=== PATIENT | male | born 1995 | race Two or more races ===

== ENCOUNTER 2023-08-17 13:58 | Inpatient (IN) | payer OTHER, SELFPAY ==
[2023-08-17] VITALS (12 sets, daily range): BP systolic 110–134; BP diastolic 67–87; BMI 36.2; BMI 34.9
--- NOTE | 2023-08-17 07:19 | ED.GENMED ---
History of Present Illness
<ARLEN Knox - Last Filed: 08/17/23 13:10>
General
Chief Complaint: Abdominal Pain
Source: patient
Exam Limitations: none
Time Seen by Provider: 08/17/23 07:06
Nursing documentation reviewed up to this point in time: agreed with
History of Present Illness
History of Present Illness:
Patient is a 28-year-old male with past medical history of gastric sleeve surgery done 1 year ago with cholecystectomy at [facility] presents to the ER with upper abdominal pain. He reports he started with his upper abdominal pain and
bloating for the past 4 days. He feels he may have stabbing him. He denies radiation. With food he becomes more bloated and nauseous. He also reported stool has been dark over the past several days. He has had decreased appetite. No prior
history of similar symptoms in the past.
Past History
<ARLEN Knox - Last Filed: 08/17/23 13:10>
Past History
ED Past Medical History: Other (Pneumonia in 2016, Hemorhoidectomy in 2017, fatty liver disease)
ED Past Surgical History: Other (Hemorrhoidectomy)
Social History
Tobacco: Non-smoker
Alcohol: None
Drug: None
Employment: Employed
Family History
Family History: CAD (Father- 2 stents) and Cancer (mother- with Breast Ca and mets to brain in 2016)
Review of Systems
<ARLEN Knox - Last Filed: 08/17/23 13:10>
Review of Systems
Allergies reviewed?: Yes
All Other Systems: ROS reviewed and negative except as documented in HPI and ROS
Constitutional: Reports no symptoms; Denies fever, fatigue or chills
Respiratory: Reports no symptoms
Cardiac: Reports no symptoms
ABD/GI: Reports abdominal pain, nausea and other (dark stools ); Denies vomiting
: Reports no symptoms
Skin: Reports no symptoms
Neurological: Reports no symptoms
Hematologic/Lymphatic: Reports no symptoms
Psychiatric: Reports no symptoms
Phy Exam
<ARLEN Knox - Last Filed: 08/17/23 13:10>
General Physical Exam
General Presentation: well appearing
General age: appears stated age
General Skin: warm and dry
General Habitus: normal
General Mental: alert
General Hydration: appears well hydrated
Gastrointestinal Exam
Gastrointestinal Exam: soft and other (epigastric pain /tenderness on exam rectal: no stool in vault )
Neurological Exam
Neurological Exam: alert and oriented x3
Musculoskeletal Exam
Musculoskeletal Exam: full ROM
Skin Exam
Skin Exam: normal color and warm/dry
Psychiatric Exam
Psychiatric Exam: normal mood/affect
Course
<ARLEN Knox - Last Filed: 08/17/23 13:10>
Orders/Labs/Results
Orders:
Orders
08/17/23 06:51
EKG [Electrocardiogram (*1)] Urgent
Reason for Study: Other
Other Reason for Exam: upper epigastric pain
EKG- Treatment ONCE
08/17/23 07:22
Famotidine [Pepcid] 20 mg IV NOW STA
Ondansetron Injectable [Zofran] 4 mg IV NOW STA
08/17/23 07:26
CT Abd/pel (oral only)-DH Only Urgent
Reason For Exam: abd pain hx of gastric sleeve surg
Iohexol [Omnipaque] See Protocol PO NOW STA
08/17/23 07:37
Ondansetron Orally Disint [Zofran Odt (Orally Disintegrating)] 4 mg .ROUTE .ST-MED ONE
08/17/23 07:42
Ondansetron Orally Disint [Zofran Odt (Orally Disintegrating)] 4 mg PO NOW STA
08/17/23 08:45
Basic Metabolic Panel Urgent
Lipase Urgent
08/17/23 09:25
Ketorolac [Toradol] 30 mg IV NOW STA
08/17/23 09:26
Ketorolac [Toradol] 30 mg IM NOW STA
Ondansetron Orally Disint [Zofran Odt (Orally Disintegrating)] 4 mg PO NOW STA
08/17/23 09:48
Complete Blood Count/With Diff Routine
Morphine Sulfate 4 mg IV NOW STA
Ondansetron Injectable [Zofran] 4 mg IV NOW STA
08/17/23 10:25
HYDROmorphone [Dilaudid] 0.5 mg IV NOW STA
08/17/23 11:36
Mag Hydrox/Al Hydrox/Simeth [Maalox] 30 ml Phenobarb/Hyoscy/Atropine/Scop [] 10 ml PO NOW
08/17/23 11:38
Mag Hydrox/Al Hydrox/Simeth [Maalox] 30 ml .ROUTE .STK-MED ONE
Phenobarb/Hyoscy/Atropine/Scop [] 10 ml .ROUTE .STK-MED ONE
08/17/23 12:51
LFT [Bpcjg-Zkox-Quehqeb] Urgent
Potassium Urgent
Abnormal Lab Results
08/17/23
09:48
WBC 4.7 L 10^3/uL
(4.8-10.8)
RBC 4.53 L 10^6/uL
(4.70-6.10)
Hct 37.7 L %
(39.0-52.0)
MPV 11.6 H fL
(7.4-10.4)
Monocytes % 10.0 H %
(1.7-9.3)
08/17/23 09:48
Vital Signs
Initial and Last Documented VS:
Initial Vital Signs
Temp Pulse Resp BP Pulse Ox
99 F 82 24 114/82 100
08/17/23 06:09 08/17/23 06:09 08/17/23 06:09 08/17/23 06:09 08/17/23 06:09
Last Documented Vital Signs
Temp Pulse Resp BP Pulse Ox
99 F 85 19 127/67 96
08/17/23 06:09 08/17/23 12:15 08/17/23 12:15 08/17/23 12:00 08/17/23 12:15
Yard Spotter consulted with Physician
Yard Spotter consulted with physician?: Yes
Name of Physician Consulted: Christiano
<Diane Alvarado MD - Last Filed: 08/17/23 09:50>
Orders/Labs/Results
Orders:
Orders
08/17/23 06:51
EKG [Electrocardiogram (*1)] Urgent
Reason for Study: Other
Other Reason for Exam: upper epigastric pain
EKG- Treatment ONCE
08/17/23 07:22
Famotidine [Pepcid] 20 mg IV NOW STA
Ondansetron Injectable [Zofran] 4 mg IV NOW STA
08/17/23 07:26
CT Abd/pel (oral only)-[facility] Only Urgent
Reason For Exam: abd pain hx of gastric sleeve surg
Iohexol [Omnipaque] See Protocol PO NOW STA
08/17/23 07:37
Ondansetron Orally Disint [Zofran Odt (Orally Disintegrating)] 4 mg .ROUTE .STK-MED ONE
08/17/23 07:42
Ondansetron Orally Disint [Zofran Odt (Orally Disintegrating)] 4 mg PO NOW STA
08/17/23 08:45
Basic Metabolic Panel Urgent
Lipase Urgent
08/17/23 09:25
Ketorolac [Toradol] 30 mg IV NOW STA
08/17/23 09:26
Ketorolac [Toradol] 30 mg IM NOW STA
Ondansetron Orally Disint [Zofran Odt (Orally Disintegrating)] 4 mg PO NOW STA
08/17/23 09:48
Complete Blood Count/With Diff Routine
Morphine Sulfate 4 mg IV NOW STA
Ondansetron Injectable [Zofran] 4 mg IV NOW STA
08/17/23 10:25
HYDROmorphone [Dilaudid] 0.5 mg IV NOW STA
08/17/23 11:36
Mag Hydrox/Al Hydrox/Simeth [Maalox] 30 ml Phenobarb/Hyoscy/Atropine/Scop [] 10 ml PO NOW
08/17/23 11:38
Mag Hydrox/Al Hydrox/Simeth [Maalox] 30 ml .ROUTE .STK-MED ONE
Phenobarb/Hyoscy/Atropine/Scop [] 10 ml .ROUTE .STK-MED ONE
08/17/23 12:51
LFT [Hbcns-Qkrh-Vmbxbgj] Urgent
Potassium Urgent
Abnormal Lab Results
08/17/23
09:48
WBC 4.7 L 10^3/uL
(4.8-10.8)
RBC 4.53 L 10^6/uL
(4.70-6.10)
Hct 37.7 L %
(39.0-52.0)
MPV 11.6 H fL
(7.4-10.4)
Monocytes % 10.0 H %
(1.7-9.3)
08/17/23 09:48
Vital Signs
Initial and Last Documented VS:
Initial Vital Signs
Temp Pulse Resp BP Pulse Ox
99 F 82 24 114/82 100
08/17/23 06:09 08/17/23 06:09 08/17/23 06:09 08/17/23 06:09 08/17/23 06:09
Last Documented Vital Signs
Temp Pulse Resp BP Pulse Ox
99 F 85 19 127/67 96
08/17/23 06:09 08/17/23 12:15 08/17/23 12:15 08/17/23 12:00 08/17/23 12:15
Procedures
<Diane Alvarado MD - Last Filed: 08/17/23 09:50>
IV Access
Indication: Emergent access required and RN unable to obtain
Performed by:: Diane Alvarado
Site:: left external jugular
Gauge:: 20
Ultrasound Guidance: No
<ARLEN Knox - Last Filed: 08/17/23 13:10>
MDM/Problems Addressed
Differential Diagnosis Includes:
Not limited to GI bleed, peptic ulcer disease, gastritis, bowel obstruction, colitis, diverticulitis
MDM/Problems Addressed:
Patient is a 28-year-old male who started with upper abdominal pain for the past 2 days. He had dark stool x 1. He does feel bloated. He is nauseous. He had gastric sleeve surgery 1 year ago at [facility]. He presents to the ER awake
alert he has tenderness of the upper abdominal area. He is a very difficult stick multiple attempts were done from midline which was unsuccessful by IV team. Patient had a left EJ placed by ED physician. Patient was medicated with narcotic pain
medication as well as nausea medicine still complaining of pain. Patient was also given GI cocktail. Rectal exam done no stool in rectum. CAT scan shows mild distention of a loop of bowel in the right lateral abdomen presumably representing small
bowel .
Patient was eval by ED attending, patient with continued pain will recommend admission. Patient with normal white count of 4.7 temp 99
<ARLEN Knox - Last Filed: 08/17/23 13:10>
*Radiology
Radiology exam reviewed: radiology read reviewed
*Pulse Oximetry
Patient hypoxic: no
*Critical Care Note
Total Time (30-74mins, 75-104mins- exclusive of procedures): Not Applicable
ED Attending Note
<ARLEN Knox - Last Filed: 08/17/23 13:10>
-
Portions of this chart may have been created with voice recognition software.� Occasional wrong word or��sound alike� substitutions may have occurred due to the inherent limitations of voice recognition software.
<Diane Alvarado MD - Last Filed: 08/17/23 09:50>
ED Attending Note
Patient seen and examined by attending physician: Yes
I performed the substantive portion of visit, reviewed & personally made and approve the management plan that is documented in note by myself or BISHNU.: Yes
ED Attending Note:
Patient appears nontoxic and is fully conversational. Lungs are clear and heart sounds regular. Patient has upper abdominal tenderness.
Discharge Plan
Departure
Patient Disposition: Admit
Date of Disposition: 08/17/23
Time of Disposition: 13:05
Admit to: Med/Surg
Admit to doctor: hospitalist
Presentation/result/management discussed w/ accepting MD/DO: Hospitalist
Patient with high blood pressure during this ER visit?: No
Condition: Fair
Covid-19: Not Applicable
Discharge Problem:
Abdominal pain
Prescriptions:
No Action
pantoprazole 20 mg Tablet,Delayed Release (Dr/Ec)
20 mg PO BID
Referrals:
Reny Ewing DO [Family Provider] -
Interventions
Interventions:
*Risk Screen - Suicide Last Done: 08/17/23 06:09
*General Assessment Last Done: 08/17/23 06:25
*Neglect/Abuse Screening Last Done: 08/17/23 06:09
ED- Fall Risk Assessment Last Done: 08/17/23 06:25
*ED COVID-19 Vaccine History Last Done: 08/17/23 06:25
HI-Yfcxyr-Voyanspnhp Assessment Last Done: 08/17/23 07:49
Discharge Date and Time
Print Language: MAORI
[2023-08-17] MEDS: ZOFRAN ODT (ORALLY DISINTEGRATING) 4 MG PO (07:43)
--- NOTE | 2023-08-17 07:45 | EDRN ---
COUNTERSINKER BALANCE SCREW HOLE unable to get IV and labs. No veins noted on exam. IV VAT RN attempting a midline at this time to obtain IV access and blood for ordered labs.
Pt given ODT zofran 4 mg to attempt to start pt drinking the PO contrast a pt has pain and nausea.
[2023-08-17] MEDS: OMNIPAQUE 50 ML PO (08:20)
--- NOTE | 2023-08-17 08:22 | EDRN ---
IV VAT RN started midline but no good blood return and unable to totally feed line, unable to get labs. Geneva Jefferson EXPERIMENTAL FLIGHT TEST MECHANIC in room speaking w/ IV VAT RN at this time per VAT RN request. Pt has started drinking oral CT contrast at this time.
[2023-08-17 09:22] LABS: Blood Urea Nitrogen 12 mg/dl (9-20); Calcium 9.7 mg/dl (8.4-10.2); Carbon Dioxide 25 mmol/L (22-30); Chloride 103 mmol/L (98-107); Estimated Creatinine Clearance > 125 ml/min; Glucose 99 mg/dl (70-99); Lipase 115 U/L (23-300); Sodium 137 mmol/L (135-145); eGFR > 60.00
[2023-08-17 09:54] LABS: % Basophils 0.4 % (0-2); % Eosinophils 1.3 % (0-6); % Immature Granulocytes 0.2 % (0-0.5); % Lymphocytes 38.7 % (20.5-51.1); % Neutrophils 49.4 % (42.2-75.2); Absolute Eosinophils 0.1 10^3/uL (0-0.7); Absolute Lymphocytes 1.8 10^3/uL (1.2-3.4); Absolute Monocytes 0.5 10^3/uL (0.1-0.6); Absolute Neutrophils 2.3 10^3/uL (1.4-6.5); Hematocrit 37.7 % (39.0-52.0); Mean Corp Hgb Conc. 34.5 g/dL (33.0-37.0); Mean Corpuscular Hgb 28.7 pg (27.0-31.0); Mean Corpuscular Volume 83.2 fL (80.0-94.0); Mean Platelet Volume 11.6 fL (7.4-10.4); Nucleated Red Blood Cells % 0 % (-); Platelet Count 196 10^3/uL (130-400); Red Blood Cell Count 4.53 10^6/uL (4.70-6.10); Red Cell Dist. Width 12.1 % (11.5-14.5); White Blood Cell Count 4.7 10^3/uL (4.8-10.8)
[2023-08-17] MEDS: ZOFRAN 4 MG IV (09:57)
[2023-08-17] MEDS: MORPHINE SULFATE 4 MG IV (09:58)
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
[2023-08-17] MEDS: DILAUDID 0.5 MG IV ×2 (10:42→13:56)
[2023-08-17] MEDS: MAALOX 10 PO (11:39)
[2023-08-17] MEDS: NSS 1000 IV (13:19)
--- NOTE | 2023-08-17 13:30 | HPS.HSE ---
Addendum entered and electronically signed by Jamaal Oquendo MD 08/17/23 14:36:
I saw and examined the patient.
The UTILITY INSPECTOR or PA's note was reviewed and I agree with the note.
Comment: 28-year-old male past medical history of GERD and gastric sleeve approximately 1 year ago who presents with abdominal pain. Pain started 3 to 4 days ago, stabbing in the epigastric region. Cannot tolerate p.o. diet at this time. 1
episode vomiting emergency room. Has had small bowel movement, dark color, pebble sized. Patient remained afebrile, pulse 83, respiratory rate 16, normotensive. Patient is tender to palpation in right lower quadrant, negative McBurney's point,
midepigastric area. White count 4.7. Imaging with no evidence of obstruction, possible enteritis. Plan�no evidence of SBO, spoke to surgery. Imaging showing good follow-through of contrast. Continue n.p.o. for now, initiate antibiotics
empirically. Stool cultures. Can repeat imaging tomorrow. IV fluids. Pain control, antiemetics, PPI IV twice daily.
Original Note:
Family Physician
-
Family Physician: Reny Ewing DO
Chief Complaint
-
Abdominal Pain
History of Present Illness
Patient is a 28-year-old male past medical history of GERD and gastric sleeve approximately 1 year ago who presents with abdominal pain. Patient reports pain started 3-4 days ago. He describes it as a sharp stabbing pain in his epigastric region.
He notes oral intake makes pain much worse. He reports increasing nausea and very poor oral intake over the last 2 days. He reports one episode of vomiting in the emergency department following GI cocktail. He reports associated constipation,
reporting bowel movement yesterday was 'small, hard john'. He notes stool has been very dark in color. He denies taking any [id number] medications for symptoms. He denies recorded fevers.
Medical History
Past Medical History
Past Medical History: Reports Other
Additional Past Medical History:
GERD
Past Surgical History: Reports Other
Additional Past Surgical History:
Gastric Sleeve
Cholecystectomy
Umbilical Hernia Repair
Social History
Tobacco: Non-smoker
Alcohol: None
Drug: None
Family History
Family History: Other (Father: Coronary Artery Disease; Mother: Metastatic Breast Cancer)
Allergies / Home Medications
Allergies reflects when Allergies were last updated in [facility].
Home Medications with original date entered in [facility]
Allergy/Medication List:
Allergies
Allergy/AdvReac Type Severity Reaction Status Date / Time
No Known Allergies Allergy Verified 08/17/23 06:11
Home Medications
pantoprazole 20 mg tablet,delayed release 20 mg PO BID 08/17/23
Review of Systems
-
A 12 point ROS was completed and negative except as noted: Yes
Constitutional: Denies Fever
Respiratory: Denies Cough or Trouble Breathing
Cardiac: Denies Chest Pain or Palpitations
Abdomen/GI: Reports See HPI
Physical Exam
Vital Signs
Vital Signs
Temp Pulse Resp BP Pulse Ox
99 F 85 19 127/67 96
08/17/23 06:09 08/17/23 12:15 08/17/23 12:15 08/17/23 12:00 08/17/23 12:15
Physical Exam
General: Comfortable and Conversant
HEENT: Anicteric and Other (Mucous membranes are dry)
Respiratory: Clear and Non Labored Respirations
Cardiac: S1/S2 and Regular Rhythm
GI: Soft, Tender (Epigastric region with voluntary guarding) and Other (Hypoactive bowel sounds)
Rectal: Other (No stool in rectal vault)
Musculoskeletal: No Clubbing, No Cyanosis and No Edema
Skin: Warm and Dry
Neuro: Awake, Alert, Oriented and Nonfocal/grossly intact
Psych: Calm
Laboratory Results
-
08/17/23 09:48
Laboratory Results
Total Bilirubin Cancelled 08/17/23 09:48
AST Cancelled 08/17/23 09:48
ALT Cancelled 08/17/23 09:48
Alkaline Phosphatase Cancelled 08/17/23 09:48
Lipase 115 U/L (23-300) 08/17/23 08:45
Data Reviewed
-
CT Scan: Report Reviewed by me
Lab Data: Labs Reviewed by me
Impression/Plan
-
Abdominal Pain, possible Small Bowel Obstruction vs Ileus vs Gastritis
-Consult Surgery
-Check abdominal x-ray in AM to follow-up oral contrast from CT scan
-Continue NPO/IV fluids - If develops worsening pain or vomiting, place NG Tube
-Continue pain control, and antiemetics
-Continue Protonix IV BID
DVT prophylaxis: SCDs
CODE STATUS: Full code
[2023-08-17] MEDS: PROTONIX IV 40 MG IV ×2 (13:55→19:37)
[2023-08-17] MEDS: NSS (PRESERVATIVE FREE) 10 ML IV ×2 (13:56→19:37)
[2023-08-17] MEDS: FLAGYL 500 MG 100 IV ×2 (15:09→23:08)
[2023-08-17] MEDS: STERILE WATER FOR INJECTION 10 ML IV (15:10)
[2023-08-17] MEDS: ROCEPHIN 1000 MG IV (15:10)
[2023-08-17] MEDS: D5/0.45%NSS with KCL 10 MEQ 1000 IV (15:53)
[2023-08-17] MEDS: DILAUDID 0.25 MG IV ×2 (16:22→20:39)
[2023-08-17 17:30] LABS: ALT (SGPT) 46 U/L (0-50); AST (SGOT) 40 U/L (17-59); Albumin 4.2 g/dl (3.5-5.0); Alkaline Phosphatase 61 U/L (38-126); Direct Bilirubin 0.2 mg/dl (0.0-0.4); Total Bilirubin 1.2 mg/dl (0.2-1.3); Total Protein 6.4 g/dl (6.3-8.2)
[2023-08-18] MEDS: ZOFRAN 4 MG IV ×4 (01:55→22:12)
[2023-08-18] MEDS: DILAUDID 0.25 MG IV ×3 (01:56→11:25)
[2023-08-18] MEDS: D5/0.45%NSS with KCL 10 MEQ 1000 IV ×2 (02:15→14:02)
[2023-08-18 05:51] LABS: Hematocrit 37.5 % (39.0-52.0); Hemoglobin 12.5 g/dL (13.0-18.0); Mean Corp Hgb Conc. 33.3 g/dL (33.0-37.0); Mean Corpuscular Hgb 28.7 pg (27.0-31.0); Mean Platelet Volume 11.2 fL (7.4-10.4); Platelet Count 142 10^3/uL (130-400); Red Blood Cell Count 4.36 10^6/uL (4.70-6.10); Red Cell Dist. Width 11.9 % (11.5-14.5); White Blood Cell Count 3.5 10^3/uL (4.8-10.8)
[2023-08-18 06:19] LABS: Blood Urea Nitrogen 8 mg/dl (9-20); Calcium 9.4 mg/dl (8.4-10.2); Carbon Dioxide 24 mmol/L (22-30); Chloride 104 mmol/L (98-107); Estimated Creatinine Clearance > 125 ml/min; Glucose 99 mg/dl (70-99); Magnesium 2.1 mg/dl (1.6-2.3); Sodium 137 mmol/L (135-145); eGFR > 60.00
[2023-08-18 07:05] VITALS: BP 107/71
--- NOTE | 2023-08-18 07:37 | W.PN.HOSP.TC ---
Today's Communication/Plan
-
stop abx
GI consult
pain control
IV PPI
adat
Assessment / Plan
Assessment / Plan
Physical Exam
General: Comfortable and Conversant
HEENT: Anicteric and Other (Mucous membranes are dry)
Respiratory: Clear and Non Labored Respirations
Cardiac: S1/S2 and Regular Rhythm
GI: Soft, Tender (Epigastric region with voluntary guarding) and Other (Hypoactive bowel sounds)
Rectal: Other (No stool in rectal vault)
Musculoskeletal: No Clubbing, No Cyanosis and No Edema
Skin: Warm and Dry
Neuro: Awake, Alert, Oriented and Nonfocal/grossly intact
Psych: Calm
Abdominal Pain
Unlikely SBO with small bowel follow through with no evidence of obstruction
No clinical evidence of colitis
-Possible Ulcer/GERD
-Cont IV PPI
-GI consulted
-f/u fever curve, wbc
-slow advancement in diet; possible CLD today
-IVF
-Continue pain control, and antiemetics
DVT prophylaxis: HSQ
CODE STATUS: Full code
Total time spent on today's encounter was 50 minutes which included time spent in counseling the patient/family regarding diagnosis and treatment plan as listed above, goals of care, and symptom management. Case was discussed with nursing staff,
specialists, and care coordinators/case management. All labs and imaging personally reviewed by me. Remainder the time spent in detailed review of previous records, lab data, imaging, and other medical provider documentation.
Anticipated Discharge: Within 24 hours
Subjective/Interval History
-
Date of Service: August 18, 2023
pain still present, midepigastric area; no diarrhea
Objective Data
-
Labs:
Laboratory Results
08/18/23
05:11
WBC 3.5 L
Hgb 12.5 L
Hct 37.5 L
Plt Count 142 D
Sodium 137
Potassium 4.0
Chloride 104
Carbon Dioxide 24
BUN 8 L
Creatinine 0.7
Glucose 99
Calcium 9.4
Vital Signs:
Vital Signs
Temp Pulse Resp BP Pulse Ox
98.0 F 73 16 115/75 97
08/17/23 23:02 08/17/23 23:02 08/17/23 23:02 08/17/23 23:02 08/17/23 23:02
I&O
08/17/23 08/18/23 08/19/23
06:59 06:59 06:59
Intake Total 1789
Balance 1789
Review of Systems
-
History Source: Patient
All other systems: Not reviewed unless documented
Data Reviewed
-
CT Scan: Image personally visualized and interpreted and Report Reviewed by me
Labs: Labs Reviewed by me
[2023-08-18] MEDS: FLAGYL 500 MG 100 IV (08:24)
[2023-08-18] MEDS: PROTONIX IV 40 MG IV ×2 (08:25→19:59)
[2023-08-18] MEDS: NSS (PRESERVATIVE FREE) 10 ML IV ×2 (08:25→20:00)
[2023-08-18 15:00] VITALS: BP 113/69
--- NOTE | 2023-08-18 15:11 | CON.GI ---
Addendum entered and electronically signed by Neeta Alonzo MD 08/18/23 18:26:
I saw and examined the patient.
The TREER or PA's note was reviewed and I agree with the note.
Comment: 28-year-old male with history of gastric sleeve (lost about 70 pounds or so in the last 2 years since surgery), history of cholecystectomy, reflux, currently on PPI-pantoprazole 20 mg twice a day presenting with epigastric pain and nausea
in the last 5 days. Also history of constipation with pebble-like stool. No previous similar episodes with abdominal pain. Does not take any NSAIDs.
CT scan with oral contrast only on admission showing mild distention of loop of bowel in the right lateral abdomen, likely small bowel and mild wall thickening at the posterior margin. Enteric contrast noted beyond that but subsequent abdominal
x-ray shows contrast in the colon. No evidence of obstruction.
-Epigastric pain, history of gastric sleeve and cholecystectomy. On PPI
Rule out esophagitis, ulcer disease versus other
Continue PPI twice daily for now.
Plan for upper endoscopy Monday.
If symptoms persist, and upper endoscopy negative, consider small bowel enterography.
-Constipation, Dulcolax suppository and start MiraLAX daily.
Will follow
Original Note:
Consultation
-
Date/Time Consultation Requested: 08/18/23
Date/Time Consultation Performed: 08/18/23 @ 15:45
Requesting Provider: Dr. Hinton
Performing Provider: ARLEN Carter; Dr. Neeta Alonzo
Reason for Consultation: mid-epigastric pain, nausea
Medical History
Chief Complaint / HPI
Chief Complaint: abdominal pain
History of Present Illness:
The patient is a 28-year-old male with a past medical history significant for GERD, gastric sleeve surgery approximately 1 year ago, history of cholecystectomy, who presented to the emergency room with complaints of abdominal pain and nausea, which
we are being asked to evaluate for. The patient reports about 5 days ago he developed a change in his bowel habits with dark-colored stools and constipation. He reports having very small pebble-like stools, last yesterday evening. Prior to this
he reports he was having bowel movements every 2 to 3 days without straining or incomplete evacuation. He does not take any laxatives or stool softeners on a regular basis. He denies any overt melena or hematochezia. He also admits to acute onset
of nausea with reduced appetite. This is associated with pain in his mid epigastric area described as a stabbing sensation that is continuous. He notes that the symptoms are worse after eating therefore his appetite has been reduced. He notes
that he did vomit once in the emergency room after being given a GI cocktail but has not had any further vomiting. He does take pantoprazole 20 mg twice daily on a regular basis for chronic history of reflux. He denies any overt heartburn or
indigestion symptoms. He denies any dysphagia or odynophagia. He reports losing about 70 to 80 pounds after his sleeve surgery which was done last year at [facility]. He notes about 2 weeks after his gastric sleeve surgery he did develop
right-sided abdominal pain with nausea and vomiting and underwent a HIDA scan which showed a reduced function of his gallbladder which was taken out. He otherwise denies any fevers, chills, chest pain, shortness of breath, lightheadedness, or
dizziness. He denies any family history of colorectal cancer or other GI cancers or disorders. He denies alcohol use. He denies illicit drug use. He denies use of NSAIDs or blood thinners. Routine labs admission showed WBC 4.7, hemoglobin 13.0,
platelets 296,000, sodium 137, potassium 4.0, BUN 12, creatinine 0.7, glucose 99, total bilirubin 1.2, direct bilirubin 0.2, AST 40, ALT 46, alk phos 61, lipase 115. Underwent a CT of the abdomen and pelvis with oral contrast only showing evidence
of previous gastric sleeve with no gastric distention, mild splenomegaly, with some abnormalities of the small bowel with mild wall thickening and distended loops of bowel, and position of the cecum and ascending colon situated in the anterior mid
to upper abdomen possibly representing a rotation anomaly. The appendix appeared within normal limits. A x-ray was done the following day which showed a nonobstructive bowel gas pattern with oral contrast reaching the mid to distal colon,
indicating unlikely obstructive process. He was made n.p.o., started on IV PPI, IV fluids, and admitted for further evaluation by GI. Upon review of imaging of the CT scan it does appear he has a significant amount of stool in the rectum and lower
colon.
Past Medical History
Past Medical History: GERD
Past Surgical History: Other (gastric sleeve surgery)
Social History
Tobacco: Non-Smoker
Alcohol: None
Drug: None
Family History
Family History: Reviewed & Not Pertinent
Allergies / Home Medications
Allergy/AdvReac Type Severity Reaction Status Date / Time
No Known Allergies Allergy Verified 08/17/23 06:11
�Medication �Instructions �Recorded
pantoprazole 20 mg tablet,delayed 20 mg PO BID Gastrointestinal Issue 08/17/23
release
Review of Systems
-
History Source: Patient
Constitutional: Reports No Symptoms
EENT: Reports No Symptoms
Respiratory: Reports No Symptoms
Cardiac: Reports No Symptoms
Abdomen/GI: Reports Abdominal Pain, Nausea, Constipated and Other (Dark stools)
: Reports No Symptoms
Musculoskeletal: Reports No Symptoms
Skin: Reports No Symptoms
Neurological: Reports No Symptoms
Vital Signs
Temp Pulse Resp BP Pulse Ox
98.0 F 73 17 107/71 96
08/18/23 07:05 08/18/23 07:05 08/18/23 07:05 08/18/23 07:05 08/18/23 07:05
Physical Exam
Exam
General: Well Developed, Well Nourished and No Apparent Distress
HEENT: Normocephalic, Anicteric and Atraumatic
GI: Soft, Non Distended, Normal Bowel Sounds and Tender (Significantly tender in the mid epigastric area and right upper quadrant)
Rectal: Deferred by Provider
Musculoskeletal: No Edema
Skin: Warm and Dry
Neuro: Awake, Alert and Oriented
Psych: Calm
Results
WBC 3.5 10^3/uL (4.8-10.8) L 08/18/23 05:11
Hgb 12.5 g/dL (13.0-18.0) L 08/18/23 05:11
Hct 37.5 % (39.0-52.0) L 08/18/23 05:11
MCV 86.0 fL (80.0-94.0) 08/18/23 05:11
Plt Count 142 10^3/uL (130-400) D 08/18/23 05:11
Absolute Neuts (auto) 2.3 10^3/uL (1.4-6.5) 08/17/23 09:48
Sodium 137 mmol/L (135-145) 08/18/23 05:11
Potassium 4.0 mmol/L (3.5-5.1) 08/18/23 05:11
Chloride 104 mmol/L (98-107) 08/18/23 05:11
Carbon Dioxide 24 mmol/L (22-30) 08/18/23 05:11
BUN 8 mg/dl (9-20) L 08/18/23 05:11
Creatinine 0.7 mg/dL (0.7-1.3) 08/18/23 05:11
Calcium 9.4 mg/dl (8.4-10.2) 08/18/23 05:11
Total Bilirubin 1.2 mg/dl (0.2-1.3) 08/17/23 17:05
AST 40 U/L (17-59) 08/17/23 17:05
ALT 46 U/L (0-50) 08/17/23 17:05
Alkaline Phosphatase 61 U/L (38-126) 08/17/23 17:05
Lipase 115 U/L (23-300) 08/17/23 08:45
Diagnostic Image Results:
08/18/23 XR abdomen: IMPRESSION: Nonobstructive bowel gas pattern with oral contrast from recent CT examination now within the mid to distal colon
08/17/23 CT A/P: IMPRESSION: Evidence of previous gastric sleeve surgery. No gastric distention. Mild splenomegaly. No obstructive uropathy. The cecum and ascending colon are situated in the anterior mid to upper abdomen. This could represent a
rotation anomaly. Terminal ileum within normal limits. Appendix normal. Mild distention of a loop of bowel in the right lateral abdomen, presumably representing small bowel. Mild wall thickening at the posterior margin. Adjacent loops of small bowel
are relatively collapsed and devoid of enteric contrast material. Possibly related to postsurgical changes in the proper clinical setting. Correlation with surgical history necessary. Otherwise, consider further evaluation/follow-up nonemergent
small bowel follow-through study.
Prior GI Procedures:
EGD: EGD prior to his gastric sleeve surgery last year reportedly was normal per patient
Colonoscopy: No prior colonoscopy
Assessment / Plan
-
The patient is a 28-year-old male with a past medical history significant for GERD on chronic PPI, gastric sleeve surgery approximately 1 year ago, history of cholecystectomy, who presented to the emergency room with complaints of abdominal pain and
nausea, which we are being asked to evaluate for. CT imaging on initial evaluation concerning for possible obstruction with some dilation of the small bowel loops, but follow-through imaging with x-ray confirmed contrast passing to the mid to
distal colon. His previous gastric sleeve surgery looked normal with no gastric distention. He also does appear to have some constipation on the CT scan as well. He continues with epigastric tenderness on exam along with intermittent nausea
although improved. He is placed on IV PPI twice daily along with IV narcotics. He was made n.p.o. on admission started on IV fluids. He did receive a dose of IV antibiotics which are since discontinued. He has no significant anemia. His LFTs
are normal. His BUN is normal. His electrolytes are normal.
Problem list:
-epigastric pain
-nausea, vomiting x1
-abnormal CT imaging showing dilated suspected SB loops in the right lateral abdomen; cecum and ascending colon situation in the mid to upper anterior abdomen, possible rotation anomaly
-hx gastric sleeve surgery 1 year ago
-hx GERD on chronic PPI
-Prior cholecystectomy after weight loss surgery
Recommendations:
-Etiology of epigastric pain possibly secondary to anastomotic ulcer versus H. pylori versus gastritis versus enteritis versus other.
---Unlikely to be ulcer disease given he is on chronic PPI with pantoprazole 20 mg twice daily, but cannot exclude this given history of gastric sleeve surgery
-At this time would continue on twice daily PPI IV
-Will trial on clear liquid diet
-Plan for EGD on Monday if he is still in the hospital and not improving. If he is feeling improved can arrange to set up outpatient sometime next week.
-Will discontinue Toradol as this can possibly worsen symptoms and is contraindicated in ulcer disease
-Monitor H&H with reported dark stool
-Given CT scan showing some degree of constipation we will give him a Dulcolax suppository x 1 then start on MiraLAX 17 g daily
-I would advise to limit narcotic use as able as this will worsen constipation
-To consider Carafate if he is not improving although this will worsen constipation therefore we will hold off for now
-PRN antiemetics for nausea
-Further plan pending above
Data Reviewed
-
Radiology: Report Reviewed by me and Discussed with Physician
CT Scan: Report Reviewed by me and Discussed with Physician
-
-
Thank you for consultation and allowing me to participate in the patient's care. Please call the seasonal customer service associate GI physician during the after hours with any questions or concerns.
--- NOTE | 2023-08-18 15:20 | CM ---
Initial assessment completed with patient who lives with his and 2 y/o son in a 1st floor apartment with 1 step to enter, no DME or in-home services, [employer] patient was independent, drove and worked. No history of Psychiatric hospitalizations.
Pharmacy is [facility] on [facility] [address] [facility] in [place], PCP is Dr. Reny Ewing. Anticipate no needs at discharge.
[2023-08-18] MEDS: DILAUDID 0.5 MG IV ×2 (15:34→20:00)
[2023-08-18] MEDS: HEPARIN 5000 UNITS SC (15:35)
[2023-08-18] MEDS: DULCOLAX 10 MG RECTAL (16:56)
[2023-08-18] MEDS: MIRALAX 17 GRAMS PO (16:56)
[2023-08-18] MEDS: D5/0.45%NSS with KCL 10 MEQ IV (21:00)
[2023-08-18 23:06] VITALS: BP 108/69
[2023-08-19] MEDS: HEPARIN 5000 UNITS SC ×4 (00:23→23:56)
[2023-08-19] MEDS: DILAUDID 0.5 MG IV ×5 (03:22→23:56)
[2023-08-19 07:05] VITALS: BP 116/71
[2023-08-19 08:29] LABS: Hematocrit 36.7 % (39.0-52.0); Hemoglobin 12.7 g/dL (13.0-18.0); Mean Corp Hgb Conc. 34.6 g/dL (33.0-37.0); Mean Corpuscular Hgb 28.9 pg (27.0-31.0); Mean Corpuscular Volume 83.6 fL (80.0-94.0); Mean Platelet Volume 11.3 fL (7.4-10.4); Platelet Count 142 10^3/uL (130-400); Red Blood Cell Count 4.39 10^6/uL (4.70-6.10); Red Cell Dist. Width 11.9 % (11.5-14.5); White Blood Cell Count 3.2 10^3/uL (4.8-10.8)
[2023-08-19] MEDS: MIRALAX 17 GRAMS PO (08:42)
[2023-08-19] MEDS: NSS (PRESERVATIVE FREE) 10 ML IV ×2 (08:43→21:40)
[2023-08-19 08:44] LABS: ALT (SGPT) 33 U/L (0-50); AST (SGOT) 22 U/L (17-59); Alkaline Phosphatase 65 U/L (38-126); Blood Urea Nitrogen 6 mg/dl (9-20); Calcium 9.8 mg/dl (8.4-10.2); Estimated Creatinine Clearance > 125 ml/min; Glucose 80 mg/dl (70-99); Potassium 3.9 mmol/L (3.5-5.1); Sodium 137 mmol/L (135-145); Total Bilirubin 0.8 mg/dl (0.2-1.3); Total Protein 6.6 g/dl (6.3-8.2); eGFR > 60.00
[2023-08-19] MEDS: PROTONIX IV 40 MG IV ×2 (08:44→21:40)
[2023-08-19 08:53] LABS: Albumin 4.2 g/dl (3.5-5.0); Carbon Dioxide 27 mmol/L (22-30); Chloride 102 mmol/L (98-107)
--- NOTE | 2023-08-19 10:21 | W.PN.GI.CBS2 ---
Today's Communication / Plan
-
-Epigastric pain, history of gastric sleeve and cholecystectomy.
Rule out esophagitis, ulcer disease versus other
CT scan with oral contrast shows absent gallbladder and no bile duct dilation
Continue PPI twice daily for now.
On clear liquid diet, will continue that given ongoing discomfort.
Plan for upper endoscopy Monday.
If symptoms persist, and upper endoscopy negative, consider small bowel enterography given mildly dilated loops of small bowel noted on CAT scan.
-Constipation, now better after Dulcolax suppository and MiraLAX
Will follow
Assessment / Plan
-
The patient is a 28-year-old male with a past medical history significant for GERD on chronic PPI, gastric sleeve surgery approximately 1 year ago, history of cholecystectomy, who presented to the emergency room with complaints of abdominal pain and
nausea, which we are being asked to evaluate for. CT imaging on initial evaluation concerning for possible obstruction with some dilation of the small bowel loops, but follow-through imaging with x-ray confirmed contrast passing to the mid to
distal colon. His previous gastric sleeve surgery looked normal with no gastric distention. He also does appear to have some constipation on the CT scan as well. He continues with epigastric tenderness on exam along with intermittent nausea
although improved. He is placed on IV PPI twice daily along with IV narcotics. He was made n.p.o. on admission started on IV fluids. He did receive a dose of IV antibiotics which are since discontinued. He has no significant anemia. His LFTs
are normal. His BUN is normal. His electrolytes are normal.
Problem list:
-epigastric pain
-nausea, vomiting x1
-abnormal CT imaging showing dilated suspected SB loops in the right lateral abdomen; cecum and ascending colon situation in the mid to upper anterior abdomen, possible rotation anomaly
-hx gastric sleeve surgery 1 year ago
-hx GERD on chronic PPI
-Prior cholecystectomy after weight loss surgery
Recommendations:
-Epigastric pain, history of gastric sleeve and cholecystectomy.
Rule out esophagitis, ulcer disease versus other
CT scan with oral contrast shows absent gallbladder and no bile duct dilation
Continue PPI twice daily for now.
On clear liquid diet, will continue that given ongoing discomfort.
Plan for upper endoscopy Monday.
If symptoms persist, and upper endoscopy negative, consider small bowel enterography given mildly dilated loops of small bowel noted on CAT scan.
-Constipation, now better after Dulcolax suppository and MiraLAX
Will follow
Subjective
Subjective
Date of Service: August 19, 2023
Patient continues to report epigastric discomfort. Some nausea but no vomiting. Reports having 3 bowel movements yesterday.
Objective
Data Reviewed
Laboratory Data:
Laboratory Results
08/19/23 06:54
08/19/23 06:54
Laboratory Results
Magnesium 2.1 mg/dl (1.6-2.3) 08/18/23 05:11
Total Bilirubin 0.8 mg/dl (0.2-1.3) 08/19/23 06:54
AST 22 U/L (17-59) 08/19/23 06:54
ALT 33 U/L (0-50) 08/19/23 06:54
Alkaline Phosphatase 65 U/L (38-126) 08/19/23 06:54
Lipase 115 U/L (23-300) 08/17/23 08:45
Vital Signs and I&O:
Vital Signs
Temp Pulse Resp BP Pulse Ox
97.8 F 76 16 116/71 98
08/19/23 07:05 08/19/23 07:05 08/19/23 07:05 08/19/23 07:05 08/19/23 07:05
I&O
08/18/23 08/19/23 08/20/23
06:59 06:59 06:59
Intake Total 1789
Balance 1789
Physical Exam
Physical Exam
GI: Soft, Non Distended and Tender (Discomfort on palpation in the upper abdomen/epigastric area)
[2023-08-19] MEDS: ZOFRAN 4 MG IV ×3 (12:18→23:56)
--- NOTE | 2023-08-19 12:31 | W.PN.HOSP.TC ---
Today's Communication/Plan
-
pain control
ppi
cld
egd monday
Assessment / Plan
Assessment / Plan
Physical Exam
General: Comfortable and Conversant
HEENT: Anicteric and Other (Mucous membranes are dry)
Respiratory: Clear and Non Labored Respirations
Cardiac: S1/S2 and Regular Rhythm
GI: Soft, Tender (Epigastric region with voluntary guarding) and Other (Hypoactive bowel sounds)
Rectal: Other (No stool in rectal vault)
Musculoskeletal: No Clubbing, No Cyanosis and No Edema
Skin: Warm and Dry
Neuro: Awake, Alert, Oriented and Nonfocal/grossly intact
Psych: Calm
Abdominal Pain
Unlikely SBO with small bowel follow through with no evidence of obstruction
No clinical evidence of colitis
-Possible Ulcer/GERD
-Cont IV PPI
-GI consulted
-EGD monday
-CLD
advancement in diet; possible CLD today
-IVF
-Continue pain control, and antiemetics
DVT prophylaxis: HSQ
CODE STATUS: Full code
Anticipated Discharge: > 48 hours
Subjective/Interval History
-
Date of Service: August 19, 2023
pain still presents, improved with dilaudid
Objective Data
-
Labs:
Laboratory Results
08/19/23
06:54
WBC 3.2 L
Hgb 12.7 L
Hct 36.7 L
Plt Count 142
Sodium 137
Potassium 3.9
Chloride 102
Carbon Dioxide 27
BUN 6 L
Creatinine 0.8
Glucose 80
Calcium 9.8
Total Bilirubin 0.8
AST 22
ALT 33
Alkaline Phosphatase 65
Vital Signs:
Vital Signs
Temp Pulse Resp BP Pulse Ox
97.8 F 76 16 116/71 98
08/19/23 07:05 08/19/23 07:05 08/19/23 07:05 08/19/23 07:05 08/19/23 07:05
I&O
08/18/23 08/19/23 08/20/23
06:59 06:59 06:59
Intake Total 1789
Balance 1789
Review of Systems
-
History Source: Patient
All other systems: Not reviewed unless documented
Data Reviewed
-
CT Scan: Image personally visualized and interpreted and Report Reviewed by me
Labs: Labs Reviewed by me
[2023-08-19 15:05] VITALS: BP 117/72
[2023-08-19] MEDS: LR 1000 IV (18:38)
[2023-08-19 20:48] LABS: Glucose - Point of Care 77 mg/dl (70-99)
[2023-08-19 20:49] VITALS: BP 133/76
[2023-08-19 21:15] LABS: Glucose - Point of Care 120 mg/dl (70-99)
--- NOTE | 2023-08-19 21:23 | PTCARENOTE ---
2030 pt was reporting s/s of hypoglycemia, pt blood glucose 77 provided applejuice and rechecked 15 min later blood glucose 120 and reporting s/s have resolved. HP notified of pt's condition and reported to encourage po intake of juice and Jello. Pt
is resting comfortably in bed at this time and educated to report to staff any changes. Pt provided applejuice and jello at bedside.
[2023-08-19 23:14] VITALS: BP 125/76
[2023-08-20] MEDS: DILAUDID 0.25 MG IV (01:50)
[2023-08-20 02:04] LABS: Glucose - Point of Care 79 mg/dl (70-99)
--- NOTE | 2023-08-20 02:20 | PTCARENOTE ---
Pt blood glucose 77 provided apple juice and educated on s/s of hypoglycemia.
[2023-08-20] MEDS: LR 1000 IV ×2 (05:28→18:15)
[2023-08-20] MEDS: DILAUDID 0.5 MG IV ×5 (05:31→21:54)
[2023-08-20 07:05] VITALS: BP 118/74
[2023-08-20 07:37] LABS: Hematocrit 35.2 % (39.0-52.0); Hemoglobin 12.6 g/dL (13.0-18.0); Mean Corp Hgb Conc. 35.8 g/dL (33.0-37.0); Mean Corpuscular Volume 80.9 fL (80.0-94.0); Mean Platelet Volume 11.3 fL (7.4-10.4); Platelet Count 175 10^3/uL (130-400); Red Blood Cell Count 4.35 10^6/uL (4.70-6.10); Red Cell Dist. Width 11.7 % (11.5-14.5); White Blood Cell Count 3.7 10^3/uL (4.8-10.8)
[2023-08-20 07:43] LABS: ALT (SGPT) 28 U/L (0-50); AST (SGOT) 20 U/L (17-59); Albumin 4.1 g/dl (3.5-5.0); Alkaline Phosphatase 57 U/L (38-126); Blood Urea Nitrogen 8 mg/dl (9-20); Calcium 9.7 mg/dl (8.4-10.2); Carbon Dioxide 28 mmol/L (22-30); Chloride 101 mmol/L (98-107); Estimated Creatinine Clearance > 125 ml/min; Glucose 85 mg/dl (70-99); Potassium 3.9 mmol/L (3.5-5.1); Sodium 136 mmol/L (135-145); Total Bilirubin 0.7 mg/dl (0.2-1.3); Total Protein 6.4 g/dl (6.3-8.2); eGFR > 60.00
[2023-08-20] MEDS: PROTONIX IV 40 MG IV ×2 (08:09→20:24)
[2023-08-20] MEDS: MIRALAX 17 GRAMS PO (08:09)
[2023-08-20] MEDS: NSS (PRESERVATIVE FREE) 10 ML IV ×2 (08:09→20:24)
[2023-08-20] MEDS: HEPARIN 5000 UNITS SC ×3 (08:09→23:52)
--- NOTE | 2023-08-20 10:15 | W.PN.GI.CBS2 ---
Today's Communication / Plan
-
-Epigastric pain, history of gastric sleeve and cholecystectomy.
Rule out esophagitis, ulcer disease versus other
CT scan with oral contrast shows absent gallbladder and no bile duct dilation
Continue PPI twice daily for now.
On clear liquid diet, will continue that given ongoing discomfort.
Plan for upper endoscopy tomorrow.
If symptoms persist, and upper endoscopy negative, consider small bowel enterography given mildly dilated loops of small bowel noted on CAT scan.
-Constipation, now better after Dulcolax suppository and MiraLAX
Had couple of episodes of loose stool 08/18/2023 but not since
Will follow
Assessment / Plan
-
The patient is a 28-year-old male with a past medical history significant for GERD on chronic PPI, gastric sleeve surgery approximately 1 year ago, history of cholecystectomy, who presented to the emergency room with complaints of abdominal pain and
nausea, which we are being asked to evaluate for. CT imaging on initial evaluation concerning for possible obstruction with some dilation of the small bowel loops, but follow-through imaging with x-ray confirmed contrast passing to the mid to
distal colon. His previous gastric sleeve surgery looked normal with no gastric distention. He also does appear to have some constipation on the CT scan as well. He continues with epigastric tenderness on exam along with intermittent nausea
although improved. He is placed on IV PPI twice daily along with IV narcotics. He was made n.p.o. on admission started on IV fluids. He did receive a dose of IV antibiotics which are since discontinued. He has no significant anemia. His LFTs
are normal. His BUN is normal. His electrolytes are normal.
Problem list:
-epigastric pain
-nausea, vomiting x1
-abnormal CT imaging showing dilated suspected SB loops in the right lateral abdomen; cecum and ascending colon situation in the mid to upper anterior abdomen, possible rotation anomaly
-hx gastric sleeve surgery 1 year ago
-hx GERD on chronic PPI
-Prior cholecystectomy after weight loss surgery
Recommendations:
-Epigastric pain, history of gastric sleeve and cholecystectomy.
Rule out esophagitis, ulcer disease versus other
CT scan with oral contrast shows absent gallbladder and no bile duct dilation
Continue PPI twice daily for now.
On clear liquid diet, will continue that given ongoing discomfort.
Plan for upper endoscopy tomorrow.
If symptoms persist, and upper endoscopy negative, consider small bowel enterography given mildly dilated loops of small bowel noted on CAT scan.
-Constipation, now better after Dulcolax suppository and MiraLAX
Had couple of episodes of loose stool 08/18/2023 but not since
Will follow
Subjective
Subjective
Date of Service: August 20, 2023
Patient continues to have epigastric discomfort, had couple of episodes of vomiting yesterday. No fevers or chills. No bowel movement yet currently on clear liquid diet only.
Objective
Data Reviewed
Laboratory Data:
Laboratory Results
08/20/23 06:47
08/20/23 06:47
Laboratory Results
Magnesium 2.1 mg/dl (1.6-2.3) 08/18/23 05:11
Total Bilirubin 0.7 mg/dl (0.2-1.3) 08/20/23 06:47
AST 20 U/L (17-59) 08/20/23 06:47
ALT 28 U/L (0-50) 08/20/23 06:47
Alkaline Phosphatase 57 U/L (38-126) 08/20/23 06:47
Lipase 115 U/L (23-300) 08/17/23 08:45
Vital Signs and I&O:
Vital Signs
Temp Pulse Resp BP Pulse Ox
97.4 F 68 14 118/74 99
08/20/23 07:05 08/20/23 07:05 08/20/23 07:05 08/20/23 07:05 08/20/23 07:05
I&O
08/19/23 08/20/23 08/21/23
06:59 06:59 06:59
Intake Total 2079
Balance 2079
Physical Exam
Physical Exam
GI: Soft and Tender (Discomfort on palpation in the upper and lower abdomen, no guarding or rigidity)
--- NOTE | 2023-08-20 13:09 | W.PN.HOSP.TC ---
Today's Communication/Plan
-
pain control
ppi
cld, npo after mn
egd monday
Assessment / Plan
Assessment / Plan
Physical Exam
General: Comfortable and Conversant
HEENT: Anicteric and Other (Mucous membranes are dry)
Respiratory: Clear and Non Labored Respirations
Cardiac: S1/S2 and Regular Rhythm
GI: Soft, Tender (Epigastric region with voluntary guarding) and Other (Hypoactive bowel sounds)
Rectal: Other (No stool in rectal vault)
Musculoskeletal: No Clubbing, No Cyanosis and No Edema
Skin: Warm and Dry
Neuro: Awake, Alert, Oriented and Nonfocal/grossly intact
Psych: Calm
Abdominal Pain
Unlikely SBO with small bowel follow through with no evidence of obstruction
No clinical evidence of colitis
-Possible Ulcer/GERD
-Cont IV PPI
-GI consulted
-EGD monday
-CLD
CLD today, npo after MN
-IVF
-Continue pain control, and antiemetics
DVT prophylaxis: HSQ
CODE STATUS: Full code
Anticipated Discharge: 24 - 48 hours
Subjective/Interval History
-
Date of Service: August 20, 2023
pain present, improved with pain regimen
Objective Data
-
Labs:
Laboratory Results
08/20/23
06:47
WBC 3.7 L
Hgb 12.6 L
Hct 35.2 L
Plt Count 175 D
Sodium 136
Potassium 3.9
Chloride 101
Carbon Dioxide 28
BUN 8 L
Creatinine 0.8
Glucose 85
Calcium 9.7
Total Bilirubin 0.7
AST 20
ALT 28
Alkaline Phosphatase 57
Vital Signs:
Vital Signs
Temp Pulse Resp BP Pulse Ox
97.4 F 68 14 118/74 99
08/20/23 07:05 08/20/23 07:05 08/20/23 07:05 08/20/23 07:05 08/20/23 07:05
I&O
08/19/23 08/20/23 08/21/23
06:59 06:59 06:59
Intake Total 2079
Balance 2079
Review of Systems
-
History Source: Patient
All other systems: Not reviewed unless documented
Data Reviewed
-
CT Scan: Image personally visualized and interpreted and Report Reviewed by me
Labs: Labs Reviewed by me
[2023-08-20] MEDS: ZOFRAN 4 MG IV (13:26)
[2023-08-20 15:05] VITALS: BP 117/65
[2023-08-20] MEDS: TYLENOL 650 MG PO (17:29)
[2023-08-20 23:09] VITALS: BP 122/77
[2023-08-20] MEDS: LR IV (23:52)
[2023-08-21] MEDS: DILAUDID 0.5 MG IV ×5 (03:34→22:48)
[2023-08-21] MEDS: LR 1000 IV ×2 (05:54→20:39)
[2023-08-21 06:58] LABS: Hematocrit 36.5 % (39.0-52.0); Hemoglobin 12.8 g/dL (13.0-18.0); Mean Corp Hgb Conc. 35.1 g/dL (33.0-37.0); Mean Corpuscular Hgb 28.8 pg (27.0-31.0); Mean Platelet Volume 11.1 fL (7.4-10.4); Platelet Count 160 10^3/uL (130-400); Red Blood Cell Count 4.45 10^6/uL (4.70-6.10); Red Cell Dist. Width 11.7 % (11.5-14.5); White Blood Cell Count 3.6 10^3/uL (4.8-10.8)
[2023-08-21 07:00] VITALS: BP 129/75
[2023-08-21 07:20] LABS: ALT (SGPT) 35 U/L (0-50); AST (SGOT) 28 U/L (17-59); Alkaline Phosphatase 59 U/L (38-126); Blood Urea Nitrogen 8 mg/dl (9-20); Calcium 9.7 mg/dl (8.4-10.2); Carbon Dioxide 27 mmol/L (22-30); Chloride 100 mmol/L (98-107); Estimated Creatinine Clearance > 125 ml/min; Glucose 77 mg/dl (70-99); Sodium 137 mmol/L (135-145); Total Bilirubin 0.7 mg/dl (0.2-1.3); Total Protein 6.4 g/dl (6.3-8.2); eGFR > 60.00
[2023-08-21] MEDS: HEPARIN 5000 UNITS SC ×2 (08:08→16:58)
[2023-08-21] MEDS: PROTONIX IV 40 MG IV ×2 (08:09→20:15)
[2023-08-21] MEDS: NSS (PRESERVATIVE FREE) 10 ML IV ×2 (08:09→20:15)
[2023-08-21] MEDS: MIRALAX PO (08:11)
--- NOTE | 2023-08-21 09:27 | W.PN.HOSP.TC ---
Today's Communication/Plan
-
EGD today
Assessment / Plan
Assessment / Plan
Physical Exam
General: Comfortable and Conversant
HEENT: Anicteric and Other (Mucous membranes are dry)
Respiratory: Clear and Non Labored Respirations
Cardiac: S1/S2 and Regular Rhythm
GI: Soft, Tender (Epigastric region with voluntary guarding) and Other (Hypoactive bowel sounds)
Rectal: Other (No stool in rectal vault)
Musculoskeletal: No Clubbing, No Cyanosis and No Edema
Skin: Warm and Dry
Neuro: Awake, Alert, Oriented and Nonfocal/grossly intact
Psych: Calm
Abdominal Pain
Unlikely SBO with small bowel follow through with no evidence of obstruction
No clinical evidence of colitis
-Possible Ulcer/GERD
-Cont IV PPI
-GI consulted
-EGD today
-NPO for procedure
-Continue pain control, and antiemetics
DVT prophylaxis: HSQ
CODE STATUS: Full code
Anticipated Discharge: 24 - 48 hours
Subjective/Interval History
-
Date of Service: August 21, 2023
required dilaudid for pain this AM
awaiting EGD
Objective Data
-
Labs:
Laboratory Results
08/21/23
06:18
WBC 3.6 L
Hgb 12.8 L
Hct 36.5 L
Plt Count 160
Sodium 137
Potassium 4.0
Chloride 100
Carbon Dioxide 27
BUN 8 L
Creatinine 0.8
Glucose 77
Calcium 9.7
Total Bilirubin 0.7
AST 28
ALT 35
Alkaline Phosphatase 59
Vital Signs:
Vital Signs
Temp Pulse Resp BP Pulse Ox
98 F 61 16 129/75 98
08/21/23 07:00 08/21/23 07:00 08/21/23 07:00 08/21/23 07:00 08/21/23 07:00
I&O
08/20/23 08/21/23 08/22/23
06:59 06:59 06:59
Intake Total 2250 / 2250 2860 / 2860
Balance 2250 / 2250 2860 / 2860
Review of Systems
-
History Source: Patient
All other systems: Reviewed and negative
Physical Exam
-
General: No Apparent Distress
HEENT: PERRLA
Respiratory: Clear to Auscultation; Negative Wheezes
Cardiac: Regular Rhythm and S1/S2
GI: Soft and Nontender
Musculoskeletal: No Edema
Skin: Warm and Dry; Negative Rash
Neuro: AO x 3
Psych: Calm
Data Reviewed
-
Diagnostic Radiology: Report Reviewed by me
Labs: Labs Reviewed by me
[2023-08-21 13:31] VITALS: BP 117/73
[2023-08-21 15:30] VITALS: BP 124/69
[2023-08-21] MEDS: ZOFRAN 4 MG IV (18:11)
[2023-08-21 23:12] VITALS: BP 118/87
[2023-08-22] MEDS: HEPARIN 5000 UNITS SC ×2 (00:45→07:43)
[2023-08-22] MEDS: DILAUDID 0.5 MG IV ×3 (04:19→12:34)
[2023-08-22 07:32] VITALS: BP 108/69
[2023-08-22] MEDS: MIRALAX 17 GRAMS PO (07:42)
[2023-08-22] MEDS: NSS (PRESERVATIVE FREE) 10 ML IV (07:43)
[2023-08-22] MEDS: PROTONIX IV 40 MG IV (07:44)
[2023-08-22] MEDS: LR 1000 IV (07:47)
[2023-08-22 08:45] LABS: Hematocrit 37.3 % (39.0-52.0); Hemoglobin 13.6 g/dL (13.0-18.0); Mean Corp Hgb Conc. 36.5 g/dL (33.0-37.0); Mean Corpuscular Hgb 29.7 pg (27.0-31.0); Mean Corpuscular Volume 81.4 fL (80.0-94.0); Mean Platelet Volume 11.1 fL (7.4-10.4); Platelet Count 160 10^3/uL (130-400); Red Blood Cell Count 4.58 10^6/uL (4.70-6.10); Red Cell Dist. Width 11.8 % (11.5-14.5); White Blood Cell Count 3.1 10^3/uL (4.8-10.8)
[2023-08-22 09:03] VITALS: BMI 34.9
[2023-08-22 09:06] LABS: Blood Urea Nitrogen 7 mg/dl (9-20); Calcium 9.7 mg/dl (8.4-10.2); Carbon Dioxide 28 mmol/L (22-30); Chloride 99 mmol/L (98-107); Estimated Creatinine Clearance > 125 ml/min; Glucose 80 mg/dl (70-99); Magnesium 1.9 mg/dl (1.6-2.3); Potassium 4.3 mmol/L (3.5-5.1); Sodium 137 mmol/L (135-145); eGFR > 60.00
--- NOTE | 2023-08-22 12:46 | W.PN.HOSP.TC ---
Today's Communication/Plan
-
MRE
Assessment / Plan
Assessment / Plan
Physical Exam
General: Comfortable and Conversant
HEENT: Anicteric and Other (Mucous membranes are dry)
Respiratory: Clear and Non Labored Respirations
Cardiac: S1/S2 and Regular Rhythm
GI: Soft, Tender (Epigastric region with voluntary guarding) and Other (Hypoactive bowel sounds)
Rectal: Other (No stool in rectal vault)
Musculoskeletal: No Clubbing, No Cyanosis and No Edema
Skin: Warm and Dry
Neuro: Awake, Alert, Oriented and Nonfocal/grossly intact
Psych: Calm
EGD
Impression: - No gross lesions in the entire esophagus.
- Z-line regular, 36 cm from the incisors.
- A sleeve gastrectomy was found, characterized by
healthy appearing mucosa.
- Normal mucosa was found in the entire stomach.
Biopsied.
- Normal examined duodenum.
Recommendation: - Await pathology results.
- Clear liquid diet,advance as tolerated.
- No etiology for the abdominal pain noted on the EGD,
Perform magnetic resonance imaging (MRI) enterography
to evaluate the small bowel given CT scan showing some
dilated loops of small bowel.
- Telephone GI clinic for pathology results in 2 weeks.
- No ibuprofen, naproxen, or other non-steroidal
anti-inflammatory drugs for 5 days after biopsy.
Abdominal Pain
Unlikely SBO with small bowel follow through with no evidence of obstruction
No clinical evidence of colitis
-Possible Ulcer/GERD
-Cont IV PPI
-GI consult appreciated
-s/p EGD 08/20, results above
-plan for MRE today
-Continue pain control, and antiemetics
DVT prophylaxis: HSQ
CODE STATUS: Full code
Anticipated Discharge: 24 - 48 hours
Subjective/Interval History
-
Date of Service: August 22, 2023
continues to have pain
per RN he is not taking in much of CLD
patient asked if he can go home later
Objective Data
-
Labs:
Laboratory Results
08/22/23
08:10
WBC 3.1 L
Hgb 13.6
Hct 37.3 L
Plt Count 160
Sodium 137
Potassium 4.3
Chloride 99
Carbon Dioxide 28
BUN 7 L
Creatinine 0.7
Glucose 80
Calcium 9.7
Vital Signs:
Vital Signs
Temp Pulse Resp BP Pulse Ox
98.2 F 63 18 108/69 96
08/22/23 07:32 08/22/23 07:32 08/22/23 07:32 08/22/23 07:32 08/22/23 08:00
I&O
08/21/23 08/22/23 08/23/23
06:59 06:59 06:59
Intake Total 2860 / 2860 2880 / 2880
Balance 2860 / 2860 2880 / 2880
Review of Systems
-
History Source: Patient
All other systems: Reviewed and negative
Physical Exam
-
General: No Apparent Distress
HEENT: PERRLA
Respiratory: Clear to Auscultation; Negative Wheezes
Cardiac: Regular Rhythm and S1/S2
GI: Soft and Nontender
Musculoskeletal: No Edema
Skin: Warm and Dry; Negative Rash
Neuro: AO x 3
Psych: Calm
Data Reviewed
-
Diagnostic Radiology: Report Reviewed by me
Labs: Labs Reviewed by me
[2023-08-22] MEDS: ZOFRAN 4 MG IV (13:10)
[2023-08-22 14:54] VITALS: BP 127/73
--- NOTE | 2023-08-22 15:03 | W.PN.UPDATE ---
Addendum entered and electronically signed by Maria E Lao MD 08/22/23 16:15:
Patient signed out AMA
Original Note:
Update Note
Progress Note Update
patient requesting to leave AMA. I explained that I am worried about him leaving without doing complete work-up given continued pain and need for IV Dilaudid. I explained that I would not be able to discharge with any pain medication. He
understands risks of leaving. Will speak with and decide.
--- NOTE | 2023-08-22 15:46 | CM ---
Addendum entered by Sukhwinder Fitzgerald 08/23/23 10:35:
Per MD note: AMA.
Original Note:
Patient spoke with Attending and considering signing out AMA. Attending discouraged AMA. Patient will speak with and decide. Anticipate home with no needs.
--- NOTE | 2023-08-22 16:11 | PTCARENOTE ---
Patient requesting to leave AMA. Dr. Hope notified and spoke with patient over the phone about risks of leaving AMA. Cross coverage Dr. Lao notified and had patient sign AMA form, informing him on risks of leaving the hospital AMA. IV team called
to remove patient L IJ.
--- NOTE | 2023-08-23 07:14 | W.DCSUMMARY ---
Discharge Summary
Discharge Data
Date of Admission: 08/17/23
Date of Discharge: 08/22/23
-
Pending Results: No
Hospital Course
Discharging Physician : Dr. Hayley Hope. PATIENT LEFT [facility] ON 08/21
Disposition : Home
Primary care physician : Dr. Reny Ewing
Principal Discharge diagnosis : Abdominal pain
Hospital Course :
Mr. Jed Frost is a 28 yo man with hx GERD on chronic PPI, gastric sleeve surgery 1 year ago, hx cholecystectomy who presents to the ER with abdominal pain and nausea. Initial workup included CT concerning for possible obstruction with some
dilation of small bowel but this was follow up with abdominal x-ray which showed passage of contrast to distal colon. He was maintained on IV PPI, pain continued. He underwent EGD on 08/20 without finding of etiology for abdominal pain. Plan was
for MRE but this was delayed as inpatient machine went down and patient decided to leave [facility]. He is given warning signs on when to return and told to follow up closely as outpatient.
Important imaging findings :
ABDOMEN/PELVIS CT 08/17/23
IMPRESSION:
Evidence of previous gastric sleeve surgery. No gastric distention.
Mild splenomegaly.
No obstructive uropathy.
The cecum and ascending colon are situated in the anterior mid to upper abdomen. This could represent a rotation anomaly. Terminal ileum within normal limits. Appendix normal.
Mild distention of a loop of bowel in the right lateral abdomen, presumably representing small bowel. Mild wall thickening at the posterior margin. Adjacent loops of small bowel are relatively collapsed and devoid of enteric contrast material.
Possibly related to postsurgical changes in the proper clinical setting. Correlation with surgical history necessary. Otherwise, consider further evaluation/follow-up nonemergent small bowel follow-through study.
Abdominal X-Ray 08/18/23
IMPRESSION:
Nonobstructive bowel gas pattern with oral contrast from recent CT examination now within the mid to distal colon.
Procedure findings :
08/21/23
EGD
Impression: - No gross lesions in the entire esophagus.
- Z-line regular, 36 cm from the incisors.
- A sleeve gastrectomy was found, characterized by
healthy appearing mucosa.
- Normal mucosa was found in the entire stomach.
Biopsied.
- Normal examined duodenum.
Recommendation: - Await pathology results.
- Clear liquid diet,advance as tolerated.
- No etiology for the abdominal pain noted on the EGD,
Perform magnetic resonance imaging (MRI) enterography
to evaluate the small bowel given CT scan showing some
dilated loops of small bowel.
- Telephone GI clinic for pathology results in 2 weeks.
- No ibuprofen, naproxen, or other non-steroidal
anti-inflammatory drugs for 5 days after biopsy.
Discharge Plan
-
Patient Disposition: Against Medical Advice
Referrals:
Reny Ewing DO [Family Provider] -
Prescriptions:
No Action
pantoprazole 20 mg Tablet,Delayed Release (Dr/Ec)
20 mg PO BID
Discharge Date and Time
Discharge Date/Time: 08/22/23 16:25
Print Language: DANISH
== END 2023-08-22 16:25 | disposition left against medical advice (07) | DRG 392 ==
LOC: 2 SOUTH 13:58
PROVIDERS: Physician Assistant Medical; ADMITTING PHYSICIAN Internal Medicine; ATTENDING PHYSICIAN Student in an Organized Health Care Education/Training Program; CONSULT PHYSICIAN Internal Medicine Gastroenterology; EMERGENCY PHYSICIAN Emergency Medicine; FAMILY PHYSICIAN Family Medicine
PROC: 0DB68ZX Excision of Stomach, Via Natural or Artificial Opening Endoscopic, Diagnostic (ICD-10-PCS; 2023-08-21)
DX: K29.70 Gastritis, unspecified, without bleeding (principal); K44.9 Diaphragmatic hernia without obstruction or gangrene; K21.9 Gastro-esophageal reflux disease without esophagitis; R10.13 Epigastric pain; R11.2 Nausea with vomiting, unspecified; K76.0 Fatty (change of) liver, not elsewhere classified; K59.00 Constipation, unspecified; Z98.84 Bariatric surgery status; Z90.49 Acquired absence of other specified parts of digestive tract; Z87.01 Personal history of pneumonia (recurrent); Z82.49 Family history of ischemic heart disease and other diseases of the circulatory system; Z80.3 Family history of malignant neoplasm of breast
CPT/HCPCS: 88305; 36556; 74018; 74176; 80048; 80053; 80076; 82962; 83690; 83735; 84132; 85025; 85027; 87045; 87046; 87077; 87427; 88342; 93005; 96374; 96375; 99285; J3480

== ENCOUNTER 2024-01-12 10:17 | Emergency (ER) | payer OTHER, SELFPAY ==
[2024-01-12 10:30] VITALS: BP 99/69
[2024-01-12 11:07] VITALS: BMI 35.0
[2024-01-12 11:20] VITALS: BP 97/53
[2024-01-12 11:28] LABS: % Basophils 0.2 % (0-2); % Eosinophils 4.2 % (0-6); % Immature Granulocytes 0.2 % (0-0.5); % Monocytes 13.1 % (1.7-9.3); % Neutrophils 33.3 % (42.2-75.2); Absolute Eosinophils 0.2 10^3/uL (0-0.7); Absolute Monocytes 0.5 10^3/uL (0.1-0.6); Absolute Neutrophils 1.4 10^3/uL (1.4-6.5); Hematocrit 39.5 % (39.0-52.0); Hemoglobin 13.3 g/dL (13.0-18.0); Mean Corp Hgb Conc. 33.7 g/dL (33.0-37.0); Mean Corpuscular Hgb 28.6 pg (27.0-31.0); Mean Corpuscular Volume 84.9 fL (80.0-94.0); Mean Platelet Volume 10.5 fL (7.4-10.4); Nucleated Red Blood Cells % 0 % (-); Platelet Count 173 10^3/uL (130-400); Red Blood Cell Count 4.65 10^6/uL (4.70-6.10); Red Cell Dist. Width 12.2 % (11.5-14.5); White Blood Cell Count 4.1 10^3/uL (4.8-10.8)
--- NOTE | 2024-01-12 11:30 | ED.GENMED ---
History of Present Illness
<Vashti Lane MD, Resident - Last Filed: 01/12/24 11:39>
General
Chief Complaint: Abdominal Symptoms
Time Seen by Provider: 01/12/24 10:46
History of Present Illness
History of Present Illness:
28-year-old male with past medical history of GERD and gastric sleeve surgery presenting to the ED with abdominal pain and nausea for the past 2 days. Patient notes having diarrhea since this a.m. and has had 7 loose nonbloody bowel movements.
Abdominal pain is generalized and not associated with any aggravating or alleviating factors. Patient states took Motrin for pain which did not help. Denies fever or chills, vomiting, urinary symptoms, dizziness. No sick contacts. No recent
travel.
Past History
<Vashti Lane MD, Resident - Last Filed: 01/12/24 11:39>
Past History
ED Past Medical History: GERD and Other (Pneumonia in 2016, Hemorhoidectomy in 2017, fatty liver disease)
ED Past Surgical History: Cholecystectomy, Tonsilectomy and Other (Hemorrhoidectomy, gastric sleeve surgery, hernia repair)
Social History
Tobacco: Non-smoker
Alcohol: None
Drug: None
Employment: Employed
Family History
Family History: CAD (Father- 2 stents) and Cancer (mother- with Breast Ca and mets to brain in 2016)
Review of Systems
<Vashti Lane MD, Resident - Last Filed: 01/12/24 11:39>
Review of Systems
Constitutional: Reports no symptoms
EENT: Reports no symptoms
Respiratory: Reports no symptoms
Cardiac: Reports no symptoms
ABD/GI: Reports abdominal pain, nausea and diarrhea
: Reports no symptoms
Musculoskeletal: Reports no symptoms
Skin: Reports no symptoms
Neurological: Reports no symptoms
Endocrine: Reports no symptoms
Hematologic/Lymphatic: Reports no symptoms
Psychiatric: Reports no symptoms
Phy Exam
<Vashti Lane MD, Resident - Last Filed: 01/12/24 11:39>
Physical Exam
Physical Exam:
GENERAL: Alert, in no apparent distress
EYE: pupils equal and reactive
NECK: Supple, no significant adenopathy.
ENT: o/p clr, mmm.
CARDIAC: Regular rate and rhythm .
LUNGS: Clear breath sounds bilaterally, no acute respiratory distress, no wheezes/rales/rhonchi
ABDOMEN: Diffuse tenderness, no r/g, no cvat
NEUROLOGICAL: Alert and oriented, no focal neuro deficits
SKIN: Warm and dry, skin intact.
MUSCULOSKELETAL: No edema, well perfused.
PSYCH: Normal and appropriate interaction.
Course
<Vashti Lane MD, Resident - Last Filed: 01/12/24 11:39>
Orders/Labs/Results
Orders:
Orders
01/12/24 11:06
IV Insert/Care/Rem.- Treatment PRN
01/12/24 11:18
Complete Blood Count/With Diff Urgent
Comprehensive Metabolic Panel Urgent
Lipase Urgent
01/12/24 11:22
Morphine Sulfate 4 mg IV NOW STA
Ondansetron Injectable [Zofran] 4 mg IV NOW STA
01/12/24 11:23
Ondansetron Injectable [Zofran] 4 mg .ROUTE .STK-MED ONE
01/12/24 11:24
Morphine Sulfate 4 mg .ROUTE .STK-MED ONE
01/12/24 11:26
0.9% Sodium Chloride 1000 ml [Nss] 1,000 ml IV BOLUS
Pantoprazole [Protonix IV] 40 mg IV NOW STA
01/12/24 12:15
STOOL [C difficile Antigen & Toxins] Urgent
JANNETH Source: Feces/Stool
Specimen Description:
Stool Culture Urgent
JANNETH Source: Feces/Stool
Specimen Description:
Dicyclomine HCl [Bentyl] 20 mg IM NOW STA
01/12/24 12:17
0.9% Sodium Chloride 1000 ml [Nss] 1,000 ml IV BOLUS
01/12/24 12:52
CT Abd/pelvis W Iv Cont Urgent
Comment:
Reason For Exam: pain
HYDROmorphone [Dilaudid] 1 mg IV NOW STA
Abnormal Lab Results
01/12/24
11:18
WBC 4.1 L 10^3/uL
(4.8-10.8)
RBC 4.65 L 10^6/uL
(4.70-6.10)
MPV 10.5 H fL
(7.4-10.4)
Neutrophils % 33.3 L %
(42.2-75.2)
Monocytes % 13.1 H %
(1.7-9.3)
01/12/24 11:18
01/12/24 11:18
Vital Signs
Initial and Last Documented VS:
Initial Vital Signs
Temp Pulse Resp BP Pulse Ox
97.9 F 89 16 99/69 97
01/12/24 10:30 01/12/24 10:30 01/12/24 10:30 01/12/24 10:30 01/12/24 10:30
Last Documented Vital Signs
Temp Pulse Resp BP Pulse Ox
97.9 F 79 16 98/51 97
01/12/24 10:30 01/12/24 13:00 01/12/24 13:00 01/12/24 13:00 01/12/24 13:00
<Denny Dougherty, DO - Last Filed: 01/12/24 14:17>
Orders/Labs/Results
Orders:
Orders
01/12/24 11:06
IV Insert/Care/Rem.- Treatment PRN
01/12/24 11:18
Complete Blood Count/With Diff Urgent
Comprehensive Metabolic Panel Urgent
Lipase Urgent
01/12/24 11:22
Morphine Sulfate 4 mg IV NOW STA
Ondansetron Injectable [Zofran] 4 mg IV NOW STA
01/12/24 11:23
Ondansetron Injectable [Zofran] 4 mg .ROUTE .STK-MED ONE
01/12/24 11:24
Morphine Sulfate 4 mg .ROUTE .STK-MED ONE
01/12/24 11:26
0.9% Sodium Chloride 1000 ml [Nss] 1,000 ml IV BOLUS
Pantoprazole [Protonix IV] 40 mg IV NOW STA
01/12/24 12:15
STOOL [C difficile Antigen & Toxins] Urgent
JANNETH Source: Feces/Stool
Specimen Description:
Stool Culture Urgent
JANNETH Source: Feces/Stool
Specimen Description:
Dicyclomine HCl [Bentyl] 20 mg IM NOW STA
01/12/24 12:17
0.9% Sodium Chloride 1000 ml [Nss] 1,000 ml IV BOLUS
01/12/24 12:52
CT Abd/pelvis W Iv Cont Urgent
Comment:
Reason For Exam: pain
HYDROmorphone [Dilaudid] 1 mg IV NOW STA
Abnormal Lab Results
01/12/24
11:18
WBC 4.1 L 10^3/uL
(4.8-10.8)
RBC 4.65 L 10^6/uL
(4.70-6.10)
MPV 10.5 H fL
(7.4-10.4)
Neutrophils % 33.3 L %
(42.2-75.2)
Monocytes % 13.1 H %
(1.7-9.3)
01/12/24 11:18
01/12/24 11:18
Vital Signs
Initial and Last Documented VS:
Initial Vital Signs
Temp Pulse Resp BP Pulse Ox
97.9 F 89 16 99/69 97
01/12/24 10:30 01/12/24 10:30 01/12/24 10:30 01/12/24 10:30 01/12/24 10:30
Last Documented Vital Signs
Temp Pulse Resp BP Pulse Ox
97.9 F 79 16 98/51 97
01/12/24 10:30 01/12/24 13:00 01/12/24 13:00 01/12/24 13:00 01/12/24 13:00
<Vashti Lane MD, Resident - Last Filed: 01/12/24 11:39>
MDM/Problems Addressed
Differential Diagnosis Includes:
Gastroenteritis
ACS
PUD
Diverticulitis
MDM/Problems Addressed:
- CBC, CMP
- Zofran 4mg IV
- MS 4mg IV
- NSS 1L bolus
- Pantoprazole 40mg IV
<Denny Dougherty, DO - Last Filed: 01/12/24 14:17>
*Critical Care Note
Total Time (30-74mins, 75-104mins- exclusive of procedures): Not Applicable
<Denny Dougherty, DO - Last Filed: 01/12/24 14:17>
Update Note
Update Note:
215, labs noted unable to provide stool studies CAT scan noted
ED Attending Note
<Vashti Lane MD, Resident - Last Filed: 01/12/24 11:39>
-
Portions of this chart may have been created with voice recognition software.� Occasional wrong word or��sound alike� substitutions may have occurred due to the inherent limitations of voice recognition software.
<Denny Dougherty DO - Last Filed: 01/12/24 14:17>
ED Attending Note
Patient seen and examined by attending physician: Yes
I performed a history and physical exam of patient and discussed management with resident, I reviewed resident's note and agree with documented findings and plan of care.: Yes
ED Attending Note:
Seen with resident examined independently 28-year-old male status post gastric sleeve presents with nausea upper abdominal pain crampy lower abdominal pain and diarrhea, admitted previously with abdominal pain, looks nontoxic here but does look
uncomfortable start pain meds antiemetics stool cultures
Discharge Plan
Departure
Patient Disposition: Home (Routine Discharge)
Date of Disposition: 01/12/24
Time of Disposition: 14:15
Patient with high blood pressure during this ER visit?: No
Condition: Good
Discharge Problem:
Abdominal pain
Instructions: Diarrhea in teens and adults, Dehydration, Adult (DC), Nausea and Vomiting, Adult (DC), Abdominal Pain
Prescriptions:
New
dicyclomine 20 mg tablet
20 mg PO QID PRN (Reason: abdominal cramps) Qty: 20 0RF
loperamide [Imodium A-D] 2 mg tablet
2 mg PO Q6H PRN (Reason: loose stool) Qty: 20 0RF
ondansetron 4 mg tablet,disintegrating
4 mg PO Q8H PRN (Reason: nausea and vomiting) Qty: 10 0RF
No Action
pantoprazole 20 mg Tablet,Delayed Release (Dr/Ec)
20 mg PO BID
Referrals:
Reny Ewing DO [Family Provider] - Next open appointment
Interventions
Interventions:
*Risk Screen - Suicide Last Done: 01/12/24 10:31
*General Assessment Last Done: 01/12/24 11:08
*Neglect/Abuse Screening Last Done: 01/12/24 10:31
ED- Fall Risk Assessment Last Done: 01/12/24 11:08
*ED COVID-19 Vaccine History Last Done: 01/12/24 11:08
UP-Vyuyfw-Dqwnufyxqh Assessment Last Done: 01/12/24 12:10
Discharge Date and Time
Print Language: ITALIAN
[2024-01-12] MEDS: NSS 1000 IV (11:33)
[2024-01-12] MEDS: ZOFRAN 4 MG IV (11:33)
[2024-01-12] MEDS: MORPHINE SULFATE 4 MG IV (11:34)
[2024-01-12 11:44] LABS: ALT (SGPT) 20 U/L (0-50); AST (SGOT) 20 U/L (17-59); Albumin 4.6 g/dl (3.5-5.0); Alkaline Phosphatase 51 U/L (38-126); Blood Urea Nitrogen 14 mg/dl (9-20); Calcium 9.4 mg/dl (8.4-10.2); Carbon Dioxide 25 mmol/L (22-30); Chloride 102 mmol/L (98-107); Estimated Creatinine Clearance 124 ml/min; Glucose 83 mg/dl (70-99); Potassium 4.3 mmol/L (3.5-5.1); Sodium 138 mmol/L (135-145); Total Bilirubin 0.9 mg/dl (0.2-1.3); Total Protein 7.1 g/dl (6.3-8.2); eGFR > 60.00
[2024-01-12 11:51] LABS: Lipase 129 U/L (23-300)
[2024-01-12 12:00] VITALS: BP 104/66
[2024-01-12] MEDS: PROTONIX IV 40 MG IV (12:00)
--- NOTE | 2024-01-12 12:09 | EDRN ---
unAble to get IV access w/ page to IV/VAT RN
[2024-01-12] MEDS: BENTYL 20 MG IM (12:34)
[2024-01-12 13:00] VITALS: BP 98/51
[2024-01-12] MEDS: DILAUDID 1 MG IV (13:10)
[2024-01-12 14:00] VITALS: BP 99/62
[2024-01-12] MEDS: IMODIUM 2 MG PO (14:27)
== END 2024-01-12 14:40 | disposition home or self-care (01) ==
LOC: EMR 10:17
PROVIDERS: EMERGENCY PHYSICIAN Emergency Medicine; FAMILY PHYSICIAN Family Medicine
DX: R19.7 Diarrhea, unspecified (principal); R11.0 Nausea; R10.10 Upper abdominal pain, unspecified; R10.30 Lower abdominal pain, unspecified; Z98.84 Bariatric surgery status; K21.9 Gastro-esophageal reflux disease without esophagitis; Z90.49 Acquired absence of other specified parts of digestive tract
CPT/HCPCS: 96374; 96375; 96372; 96361; 99284; 74177; 80053; 83690; 85025; Q9967

== ENCOUNTER 2024-01-13 06:15 | Emergency (ER) | payer OTHER, SELFPAY ==
[2024-01-13 06:30] VITALS: BP 103/68
--- NOTE | 2024-01-13 06:47 | ED.GENMED ---
History of Present Illness
General
Chief Complaint: Abdominal Pain
Source: patient
Exam Limitations: none
Time Seen by Provider: 01/13/24 06:41
History of Present Illness
History of Present Illness:
See MDM
Past History
Past History
ED Past Medical History: GERD and Other (Pneumonia in 2016, Hemorhoidectomy in 2017, fatty liver disease)
ED Past Surgical History: Cholecystectomy, Tonsilectomy and Other (Hemorrhoidectomy, gastric sleeve surgery, hernia repair)
Social History
Tobacco: Non-smoker
Alcohol: None
Drug: None
Employment: Employed
Family History
Family History: CAD (Father- 2 stents) and Cancer (mother- with Breast Ca and mets to brain in 2015)
Phy Exam
Physical Exam
Physical Exam:
See MDM
Course
Orders/Labs/Results
Orders:
Orders
01/13/24 06:46
Ketorolac [Toradol] 30 mg IM NOW STA
Mag Hydrox/Al Hydrox/Simeth [Maalox] 30 ml Phenobarb/Hyoscy/Atropine/Scop [] 10 ml Viscous Lidocaine 2% [Xylocaine Viscous Cup] 10 ml PO NOW
Ondansetron Orally Disint [Zofran Odt (Orally Disintegrating)] 4 mg PO NOW STA
01/13/24 07:10
Mag Hydrox/Al Hydrox/Simeth [Maalox] 30 ml .ROUTE .STK-MED ONE
Phenobarb/Hyoscy/Atropine/Scop [] 10 ml .ROUTE .STK-MED ONE
01/13/24 07:11
Viscous Lidocaine 2% [Xylocaine Viscous Cup] 15 ml .ROUTE .STK-MED ONE
01/13/24 07:48
0.9% Sodium Chloride 1000 ml [Nss] 1,000 ml IV BOLUS
Ondansetron Injectable [Zofran] 4 mg IV NOW STA
01/13/24 09:12
Morphine Sulfate 4 mg IV NOW STA
Vital Signs
Initial and Last Documented VS:
Initial Vital Signs
Temp Pulse BP Pulse Ox
98.2 F 88 103/68 96
01/13/24 06:30 01/13/24 06:30 01/13/24 06:30 01/13/24 06:30
Last Documented Vital Signs
Temp Pulse BP Pulse Ox
98.2 F 88 103/68 97
01/13/24 06:30 01/13/24 06:30 01/13/24 06:30 01/13/24 07:30
MDM/Problems Addressed
Differential Diagnosis Includes:
HPI and MDM Narrative:
28-year-old male presenting back to the emergency department with abdominal pain. Patient states he has had intermittent diarrhea and constipation for the past 3 weeks. The pain has increased over the past 3 days which is why he went to the
emergency department yesterday. Workup was negative which included blood work and a CT. Patient states he is now developing vomiting. He is passing gas. Patient was told to come back if any symptoms worsen. On exam, he is well-appearing and
nontoxic. There is mild epigastric tenderness on exam. Clinically, he does not appear to be obstructed. Will give Toradol, GI cocktail and Zofran and continue to reassess
Physical exam
General: Well appearing and non-toxic
HEENT: protecting airway
Neck: appears supple
CV: No evidence of cyanosis
Resp: No accessory muscle use.
Abd: Non-distended. Mild epigastric tenderness. No rebound
Extremities: No deformities
Neuro: alert
Psych: Normal affect
Skin: Intact
Problems Addressed including Acute and Chronic Conditions affecting care:
1. Abdominal pain
Acuity: acute
Prognosis: stable
Details: Potentially the setting of viral infection. Will give Zofran, Toradol and GI cocktail and reassess. CT performed yesterday was negative
Updates
7:50 AM patient states he threw up his medicine. I gave him the option of IV fluids and IV Zofran and patient agreed. Ultimately, we discussed that should be further evaluated by GI as an outpatient. We discussed low utility in repeating blood
work and repeating CT symptoms already done yesterday. Patient acknowledged
9:10 AM nursing initially having trouble getting IV placement. When the IV was placed, patient now stating that he wants to go home
Differential Diagnosis (but not limited to): Gastroenteritis, gastritis, reflux, peptic ulcer disease
Testing considered: Abdominal x-ray
Drug therapy (if applicable): OTC meds, please see d/c instruction regarding Rx drugs
Amount and/or Complexity of Data Reviewed
Clinical info obtained from: Patient
External data reviewed: CT performed yesterday was negative for acute. Patient was admitted for similar issue in August with a negative workup which included EGD and stool samples
Labs I independently reviewed (but not limited to): N/A
Radiology: N/A
Pulse Ox: not hypoxic
EKG independently reviewed: N/A
Inspector Machine Parts: N/A
Critical Care: N/A
Risk of Complication:
Social Determinants of health: Good social support
Discussed with other providers: N/A
Escalation of Care includes Admit/Obs: After being observed in the Emergency Department, pt stable for discharge.
Occasional wrong word or 'sound a like' substitutions may have occurred due to the inherent limitations of voice recognition software. Read the chart carefully and recognize, using context, where substitutions have occurred.
*Critical Care Note
Total Time (30-74mins, 75-104mins- exclusive of procedures): Not Applicable
ED Attending Note
-
Portions of this chart may have been created with voice recognition software.� Occasional wrong word or��sound alike� substitutions may have occurred due to the inherent limitations of voice recognition software.
Discharge Plan
Departure
Patient Disposition: Home (Routine Discharge)
Date of Disposition: 01/13/24
Time of Disposition: 09:13
Patient with high blood pressure during this ER visit?: No
Discharge Problem:
Abdominal pain
Instructions: Abdominal Pain
Prescriptions:
No Action
pantoprazole 20 mg Tablet,Delayed Release (Dr/Ec)
20 mg PO BID
dicyclomine 20 mg tablet
20 mg PO QID PRN (Reason: abdominal cramps) Qty: 20 0RF
loperamide [Imodium A-D] 2 mg tablet
2 mg PO Q6H PRN (Reason: loose stool) Qty: 20 0RF
ondansetron 4 mg tablet,disintegrating
4 mg PO Q8H PRN (Reason: nausea and vomiting) Qty: 10 0RF
Referrals:
Reny Ewing DO [Family Provider] -
Activity Restrictions/Additional Instructions:
Please return for any worsening symptoms.
You may return at any time if you have further concerns.
Please follow up with your doctor at the first available appointment, preferably this week. 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
Interventions
Interventions:
*Risk Screen - Suicide Last Done: 01/13/24 06:20
*General Assessment Last Done: 01/13/24 07:20
*Neglect/Abuse Screening Last Done: 01/13/24 06:20
*ED COVID-19 Vaccine History Last Done: 01/13/24 06:20
Discharge Date and Time
Print Language: [place] CITIZEN
[2024-01-13 07:13] VITALS: BMI 35.2
[2024-01-13] MEDS: MAALOX 30 PO (07:14)
[2024-01-13] MEDS: ZOFRAN ODT (ORALLY DISINTEGRATING) 4 MG PO (07:15)
[2024-01-13] MEDS: TORADOL 30 MG IM (07:15)
--- NOTE | 2024-01-13 09:21 | EDRN ---
Patient refused IV zofran and states he just wants to leave, patient unable to obtain ride home and will not take the morphine.
== END 2024-01-13 09:20 | disposition home or self-care (01) ==
LOC: EMR 06:15
PROVIDERS: EMERGENCY PHYSICIAN Student in an Organized Health Care Education/Training Program; FAMILY PHYSICIAN Family Medicine
DX: R10.9 Unspecified abdominal pain (principal)
CPT/HCPCS: 99284; 96374; 96372